=== PATIENT | female | born 2005 | race African-American/Black ===

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

== ENCOUNTER 2023-05-10 03:57 | Emergency (ER) | payer OTHER ==
[~2023-05-10] VITALS: Ht 165.1 cm; Wt 73.6 kg
[2023-05-10] MEDS ORDERED: KETOROLAC 30 MG/ML 1ML VIAL IM ONE (07:45)
[2023-05-10] MEDS ORDERED: ACET-897 PO (07:53)
[2023-05-10] MEDS ORDERED: ACET500P3 PO (07:53)
[2023-05-10 13:08] VITALS: BP 133/86; TEMP 98.2; O2SAT 99
== END 2023-05-10 13:10 | disposition home or self-care (01) ==
LOC: M ED 03:57
DX: M25.461 Effusion, right knee (principal); Y93.B9 Activity, other involving muscle strengthening exercises; Z91.018 Allergy to other foods
CPT/HCPCS: 73564; 73721; 96372; 99284; J1885

== ENCOUNTER → 2023-05-17 | Outpatient (REF) | payer OTHER ==
[~2023-05-17] MED LIST: ACET-897 PO; ACET500P3 PO
[2023-05-17 19:39] LABS: CRYSTALS, BODY FLUID NONE SEEN (NONE SEEN); SOURCE, BODY FLUID CRYSTALS LFT ANKLE
[2023-05-17 19:41] LABS: SOURCE, BODY FLUID LT ANKLE; SYNOVIAL FLUID COLOR YELLOW (COLORLESS)
== END ==
LOC: M LAB REF 16:50
PROVIDERS: ATTEND Orthopaedic Surgery
DX: M25.462 Effusion, left knee (principal)